=== PATIENT | male | born 1950 | race Caucasian/White ===

== ENCOUNTER → 2017-08-13 16:16 | Outpatient (CLI) | payer MEDICAID ==
[2014-10-16 09:36] VITALS: BMI 23.7
[~2017-08-13 16:16] MED LIST: ALTACE10 MG PO; ASPIRIN325 MG PO; ATIVAN1 MG PO; FLOMAX0.4 MG PO; HYDROCODONE-APA1 TAB PO; IPRAT-ALBUT 0.5-3 ML UPD; LEVAQUIN500 MG PO; LOPRESSOR50 MG PO; MUCINEX600 MG PO; NICODERM C1 PATCH .1 TRANSDERM; NIFEDIPINE ER30 MG PO; NORCO 10/325 TA1 TA1 OR; PERFOROMIS20 MCG/21 UPD; PLAVIX75 MG PO; PREDNISONE10 MG PO; PREDNISONE20 MG PO; PROTONIX40 MG PO; SODIUM BICARBO650 MG PO; VENTOLIN HFA18 GM INH; XANAX0.25 MG PO; ZOCOR10 MG PO; ZYLOPRIM100 MG PO; [UNRECOGNIZED DRUG - OTHER] OR
[2017-08-13 17:39] LABS: ALBUMIN 3.8 g/dL (3.4-5.0); ANION GAP 17.8 mmol/L (8-16); BILIRUBIN - TOTAL 0.4 mg/dL (0.2-1.3); CALCIUM 8.5 mg/dL (8.5-10.1); CREATININE - SERUM 2.2 mg/dL (0.6-1.3); POTASSIUM - SERUM 5.8 mmol/L (3.5-5.1); PROTEIN - SERUM 7.5 g/dL (6.4-8.2)
== END | disposition home or self-care (01) ==
LOC: D.LABREF 16:16
PROVIDERS: Family Medicine
DX: J18.9 Pneumonia, unspecified organism (principal)

== ENCOUNTER 2018-01-13 16:34 | Inpatient (IN) | payer MEDICAID ==
[~2018-01-13] VITALS: Ht 160 cm; Wt 59.7 kg
[2018-01-13] MEDS ORDERED: NORCO 7.5/325 T1 TA1 PO (17:05)
[2018-01-13] MEDS ORDERED: NORVASC2.5 MG PO (17:06)
[2018-01-13 17:08] VITALS: BP 113/55; BMI 24.8
[2018-01-13 20:00] VITALS: BP 113/53
[2018-01-14] VITALS: BP 134/69
[2018-01-14 04:00] VITALS: BP 132/44
[2018-01-14 06:47] LABS: BASOPHILS 0.3 % (0-2); EOSINOPHILS 6.5 % (0-7); HEMATOCRIT 30.9 % (42.0-54.0); HEMOGLOBIN 10.3 g/dL (13.5-17.5); IMMATURE GRANULOCYTES 0.1 % (0-5); LYMPHOCYTES 33.6 % (15-50); MCH 30.3 pg (26.0-34.0); MCHC 33.3 g/dL (31.0-37.0); MCV 90.9 fL (80.0-100.0); MEAN PLATELET VOLUME 11.1 fL (7.4-10.4); MONOCYTES 6.4 % (2-11); NEUTROPHILS 53.1 % (40-80); RDW 15.4 % (11.5-14.5); WBC 6.7 10x3/uL (4.8-10.8)
[2018-01-14 06:55] LABS: PLATELET COUNT 149 10x3/uL (130-400)
[2018-01-14 07:01] LABS: ALBUMIN 3.5 g/dL (3.4-5.0); BILIRUBIN - TOTAL 0.2 mg/dL (0.2-1.3); CALCIUM 8.5 mg/dL (8.5-10.1); CARBON DIOXIDE 16.9 mmol/L (21.0-32.0); CREATININE - SERUM 4.9 mg/dL (0.6-1.3); PHOSPHOROUS 5.7 mg/dL (2.5-4.9); POTASSIUM - SERUM 4.9 mmol/L (3.5-5.1); PROTEIN - SERUM 7.1 g/dL (6.4-8.2)
[2018-01-14 07:32] LABS: INR 1.02 (0.85-1.17)
[2018-01-14 07:41] LABS: APPEARANCE CLEAR (CLEAR); BILIRUBIN NEGATIVE (NEGATIVE); COLOR YELLOW (YELLOW); GLUCOSE NEGATIVE (NEGATIVE); KETONE NEGATIVE (NEGATIVE); NITRITE NEGATIVE (NEGATIVE); PROTEIN TRACE mg/dL (NEGATIVE); SPECIFIC GRAVITY 1.015 (1.005-1.020); UROBILINOGEN NORMAL (NORMAL)
[2018-01-14 07:49] LABS: THYROID STIMULATING HORMONE 3.24 uIU/mL (0.36-3.74); URIC ACID 8.8 mg/dL (2.6-7.2)
[2018-01-14 08:06] VITALS: BP 115/62
[2018-01-14 11:44] VITALS: BP 129/48
[2018-01-14 13:11] VITALS: Ht 160 cm; Wt 59.7 kg
[2018-01-14 15:39] VITALS: BP 147/66
[2018-01-14 20:00] VITALS: BP 139/49
[2018-01-15] VITALS: BP 146/54
[2018-01-15 04:00] VITALS: BP 165/53
[2018-01-15 06:25] LABS: BASOPHILS 0.3 % (0-2); EOSINOPHILS 5.2 % (0-7); HEMATOCRIT 28.4 % (42.0-54.0); HEMOGLOBIN 9.5 g/dL (13.5-17.5); IMMATURE GRANULOCYTES 0.3 % (0-5); LYMPHOCYTES 24.5 % (15-50); MCHC 33.5 g/dL (31.0-37.0); MCV 89.6 fL (80.0-100.0); MEAN PLATELET VOLUME 11.8 fL (7.4-10.4); MONOCYTES 8.1 % (2-11); NEUTROPHILS 61.6 % (40-80); PLATELET COUNT 162 10x3/uL (130-400); RBC 3.17 10x6/uL (4.20-6.10); RDW 14.9 % (11.5-14.5); WBC 6.2 10x3/uL (4.8-10.8)
[2018-01-15 06:30] LABS: CALCIUM 7.7 mg/dL (8.5-10.1); CREATININE - SERUM 4.3 mg/dL (0.6-1.3); PHOSPHOROUS 4.6 mg/dL (2.5-4.9)
[2018-01-15 06:36] LABS: ANION GAP 13.7 mmol/L (8-16); CARBON DIOXIDE 24.4 mmol/L (21.0-32.0); POTASSIUM - SERUM 4.1 mmol/L (3.5-5.1)
[2018-01-15 08:15] VITALS: BP 152/51
[2018-01-15 11:19] LABS: HEPATITIS C ANTIBODY 0.1 (0.0-0.9)
[2018-01-15 12:08] LABS: % SATURATION 27 % (15-55); IRON 45 ug/dl (35-150); TOTAL IRON BIND CAPACITY 165 ug/dl (260-445); UNSAT IRON BIND CAPACITY 120 ug/dl (150-375)
[2018-01-15 14:21] LABS: SPE - A/G RATIO 1.3 (0.7-1.7); SPE - ALBUMIN 3.8 g/dL (2.9-4.4); SPE - ALPHA-1 GLOBULIN 0.2 g/dL (0.0-0.4); SPE - ALPHA-2 GLOBULIN 0.8 g/dL (0.4-1.0); SPE - BETA GLOBULIN 0.8 g/dL (0.7-1.3); SPE - GAMMA GLOBULIN 1.1 g/dL (0.4-1.8); SPE - M-SPIKE Not Observed g/dL (Not Observed); SPE - TOTAL PROTEIN 6.7 g/dL (6.0-8.5)
[2018-01-15 15:55] VITALS: BP 165/43
[2018-01-15 20:00] VITALS: BP 147/55
[2018-01-16] VITALS: BP 133/52
[2018-01-16 04:00] VITALS: BP 163/48
[2018-01-16 06:17] LABS: BASOPHILS 0.1 % (0-2); EOSINOPHILS 1.5 % (0-7); HEMATOCRIT 27.8 % (42.0-54.0); HEMOGLOBIN 9.3 g/dL (13.5-17.5); IMMATURE GRANULOCYTES 0.2 % (0-5); LYMPHOCYTES 9.7 % (15-50); MCHC 33.5 g/dL (31.0-37.0); MCV 89.7 fL (80.0-100.0); MEAN PLATELET VOLUME 12.5 fL (7.4-10.4); MONOCYTES 6.1 % (2-11); NEUTROPHILS 82.4 % (40-80); PLATELET COUNT 142 10x3/uL (130-400); RDW 14.9 % (11.5-14.5)
[2018-01-16 06:24] LABS: WBC 8.6 10x3/uL (4.8-10.8)
[2018-01-16 06:36] LABS: CALCIUM 7.6 mg/dL (8.5-10.1); CREATININE - SERUM 3.6 mg/dL (0.6-1.3); POTASSIUM - SERUM 3.8 mmol/L (3.5-5.1)
[2018-01-16 06:37] LABS: CARBON DIOXIDE 30.8 mmol/L (21.0-32.0); PHOSPHOROUS 2.7 mg/dL (2.5-4.9)
[2018-01-16 08:52] VITALS: BP 145/59
[2018-01-16 09:14] LABS: FOLATE (FOLIC ACID) - SERUM 3.3 ng/mL (>3.0)
[2018-01-16 11:35] VITALS: BP 136/49
[2018-01-16 15:49] VITALS: BP 130/50
[2018-01-16 21:42] VITALS: BP 131/43
[2018-01-17 01:22] VITALS: BP 146/52
[2018-01-17 05:37] VITALS: BP 138/59
[2018-01-17 05:42] LABS: BASOPHILS 0.3 % (0-2); EOSINOPHILS 3.7 % (0-7); HEMATOCRIT 29.5 % (42.0-54.0); HEMOGLOBIN 9.7 g/dL (13.5-17.5); IMMATURE GRANULOCYTES 0.3 % (0-5); LYMPHOCYTES 14.7 % (15-50); MCH 30.1 pg (26.0-34.0); MCHC 32.9 g/dL (31.0-37.0); MCV 91.6 fL (80.0-100.0); MONOCYTES 8.7 % (2-11); NEUTROPHILS 72.3 % (40-80); PLATELET COUNT 141 10x3/uL (130-400); RBC 3.22 10x6/uL (4.20-6.10); RDW 14.4 % (11.5-14.5)
[2018-01-17 05:58] LABS: ANION GAP 6.1 mmol/L (8-16); CALCIUM 7.4 mg/dL (8.5-10.1); CARBON DIOXIDE 36.7 mmol/L (21.0-32.0); CREATININE - SERUM 3.5 mg/dL (0.6-1.3); POTASSIUM - SERUM 3.8 mmol/L (3.5-5.1)
[2018-01-17 06:04] LABS: PHOSPHOROUS 3.4 mg/dL (2.5-4.9)
[2018-01-17 10:11] VITALS: BP 150/71
[2018-01-17 13:45] VITALS: BP 143/62
[2018-01-17 16:26] VITALS: BP 155/69
[2018-01-17 22:29] VITALS: BP 149/62
[2018-01-18] VITALS: BP 157/51
[2018-01-18 05:44] LABS: BASOPHILS 0.4 % (0-2); EOSINOPHILS 6.1 % (0-7); HEMATOCRIT 28.3 % (42.0-54.0); HEMOGLOBIN 9.2 g/dL (13.5-17.5); IMMATURE GRANULOCYTES 0.3 % (0-5); LYMPHOCYTES 14.5 % (15-50); MCH 30.1 pg (26.0-34.0); MCHC 32.5 g/dL (31.0-37.0); MCV 92.5 fL (80.0-100.0); MEAN PLATELET VOLUME 12.5 fL (7.4-10.4); MONOCYTES 7.7 % (2-11); PLATELET COUNT 147 10x3/uL (130-400); RBC 3.06 10x6/uL (4.20-6.10); RDW 14.1 % (11.5-14.5); WBC 7.8 10x3/uL (4.8-10.8)
[2018-01-18 05:50] VITALS: BP 150/71
[2018-01-18 05:56] LABS: ANION GAP 6.2 mmol/L (8-16); CALCIUM 7.6 mg/dL (8.5-10.1); CREATININE - SERUM 3.3 mg/dL (0.6-1.3); PHOSPHOROUS 3.8 mg/dL (2.5-4.9); POTASSIUM - SERUM 4.2 mmol/L (3.5-5.1)
[2018-01-18 08:14] VITALS: BP 163/58
[2018-01-18 16:13] VITALS: BP 132/80
[2018-01-18 16:19] VITALS: BP 149/37
[2018-01-18 20:00] VITALS: BP 157/43
[2018-01-19] VITALS: BP 170/53
[2018-01-19 04:00] VITALS: BP 150/74
[2018-01-19 05:56] LABS: BASOPHILS 0.3 % (0-2); HEMATOCRIT 29.6 % (42.0-54.0); HEMOGLOBIN 9.6 g/dL (13.5-17.5); IMMATURE GRANULOCYTES 0.1 % (0-5); LYMPHOCYTES 17.4 % (15-50); MCH 30.4 pg (26.0-34.0); MCHC 32.4 g/dL (31.0-37.0); MCV 93.7 fL (80.0-100.0); MEAN PLATELET VOLUME 12.1 fL (7.4-10.4); NEUTROPHILS 65.2 % (40-80); PLATELET COUNT 166 10x3/uL (130-400); RBC 3.16 10x6/uL (4.20-6.10); RDW 13.8 % (11.5-14.5); WBC 7.1 10x3/uL (4.8-10.8)
[2018-01-19 06:41] LABS: ANION GAP 10.5 mmol/L (8-16); CALCIUM 8.4 mg/dL (8.5-10.1); CARBON DIOXIDE 32.6 mmol/L (21.0-32.0); CREATININE - SERUM 3.2 mg/dL (0.6-1.3); POTASSIUM - SERUM 4.1 mmol/L (3.5-5.1)
[2018-01-19 07:44] VITALS: BP 140/74
[2018-01-19 10:40] VITALS: BP 146/76
[2018-01-19 16:07] VITALS: BP 143/66
[2018-01-19 20:00] VITALS: BP 143/71
[2018-01-20 00:32] VITALS: BP 130/50
[2018-01-20 04:00] VITALS: BP 139/58
[2018-01-20 06:00] LABS: ANION GAP 8.4 mmol/L (8-16); CALCIUM 7.9 mg/dL (8.5-10.1); CARBON DIOXIDE 33.7 mmol/L (21.0-32.0); CREATININE - SERUM 2.8 mg/dL (0.6-1.3); POTASSIUM - SERUM 4.1 mmol/L (3.5-5.1)
[2018-01-20 08:03] VITALS: BP 166/102
[2018-01-20 12:06] VITALS: BP 132/60
[2018-01-20] MEDS ORDERED: NORVASC5 MG PO (13:35)
[2018-01-20] MEDS ORDERED: ANORO ELLIPTA1 EACH INH (13:35)
== END 2018-01-20 17:56 | disposition home health service (06) | DRG 683 ==
LOC: D.M2 16:34
PROVIDERS: Family Medicine; Internal Medicine Nephrology
DX: N17.9 Acute kidney failure, unspecified (principal); F17.203 Nicotine dependence unspecified, with withdrawal; I12.9 Hypertensive chronic kidney disease with stage 1 through stage 4 chronic kidney disease, or unspecified chronic kidney disease; N18.3 Chronic kidney disease, stage 3 (moderate); J44.9 Chronic obstructive pulmonary disease, unspecified; E78.5 Hyperlipidemia, unspecified; I73.9 Peripheral vascular disease, unspecified; D64.9 Anemia, unspecified; F41.9 Anxiety disorder, unspecified; K21.9 Gastro-esophageal reflux disease without esophagitis; K59.09 Other constipation; R33.9 Retention of urine, unspecified; Z85.830 Personal history of malignant neoplasm of bone

== ENCOUNTER 2018-02-11 08:13 | Emergency (ER) | payer MEDICAID ==
[~2018-02-11] VITALS: Ht 160 cm; Wt 59.1 kg
[~2018-02-11 08:13] MED LIST changes: +ANORO ELLIPTA1 EACH INH; +NORCO 7.5/325 T1 TA1 PO; +NORVASC2.5 MG PO; +NORVASC5 MG PO
[2018-02-11 08:15] VITALS: BP 101/57; Ht 160 cm; Wt 59.1 kg
[2018-02-11 08:36] LABS: BASOPHILS 0.2 % (0-2); EOSINOPHILS 3.3 % (0-7); HEMATOCRIT 28.6 % (42.0-54.0); HEMOGLOBIN 9.4 g/dL (13.5-17.5); IMMATURE GRANULOCYTES 0.2 % (0-5); LYMPHOCYTES 13.4 % (15-50); MCH 30.4 pg (26.0-34.0); MCHC 32.9 g/dL (31.0-37.0); MCV 92.6 fL (80.0-100.0); MEAN PLATELET VOLUME 11.2 fL (7.4-10.4); MONOCYTES 6.8 % (2-11); NEUTROPHILS 76.1 % (40-80); RBC 3.09 10x6/uL (4.20-6.10); RDW 14.8 % (11.5-14.5); WBC 12.4 10x3/uL (4.8-10.8)
[2018-02-11 08:44] LABS: PLATELET COUNT 205 10x3/uL (130-400)
[2018-02-11 08:51] LABS: ALBUMIN 3.3 g/dL (3.4-5.0); ANION GAP 16.5 mmol/L (8-16); BILIRUBIN - TOTAL 0.23 mg/dL (0.2-1.3); CALCIUM 8.4 mg/dL (8.5-10.1); CARBON DIOXIDE 24.8 mmol/L (21.0-32.0); CREATININE - SERUM 2.9 mg/dL (0.6-1.3); POTASSIUM - SERUM 5.3 mmol/L (3.5-5.1); PROTEIN - SERUM 7.6 g/dL (6.4-8.2)
[2018-02-11 09:51] LABS: APPEARANCE HAZY (CLEAR); COLOR YELLOW (YELLOW); SPECIFIC GRAVITY 1.015 (1.005-1.020)
[2018-02-11 09:52] LABS: BILIRUBIN NEGATIVE (NEGATIVE); GLUCOSE NEGATIVE (NEGATIVE); KETONE NEGATIVE (NEGATIVE); NITRITE NEGATIVE (NEGATIVE); PROTEIN 1+ mg/dL (NEGATIVE); UROBILINOGEN NORMAL (NORMAL)
[2018-02-11 10:07] LABS: BACTERIA FEW /hpf (NONE SEEN); EPITHELIAL CELLS OCC /hpf (0-5); HYALINE CAST 0-5 /lpf (NONE SEEN); MUCUS <1+ /lpf (NONE SEEN); WHITE CELLS - URINE 0-5 /hpf (0-5)
== END 2018-02-11 11:45 | disposition home or self-care (01) ==
LOC: D.ER 08:13
PROVIDERS: Emergency Medicine
DX: I12.9 Hypertensive chronic kidney disease with stage 1 through stage 4 chronic kidney disease, or unspecified chronic kidney disease (principal); N18.9 Chronic kidney disease, unspecified; D63.1 Anemia in chronic kidney disease; E87.5 Hyperkalemia; J44.9 Chronic obstructive pulmonary disease, unspecified; R53.81 Other malaise